=== PATIENT | male | born 1945 | race Caucasian/White ===

== ENCOUNTER 2017-08-02 08:16 | Inpatient (IN) | payer OTHER ==
[2017-08-02 08:26] VITALS: BMI 25.0
--- NOTE | 2017-08-02 08:44 | PDOC ---
History of Present Illness - General Chief Complaint: Weakness Stated Complaint: LETHARGIC Time Seen by Provider: 08/02/17 08:43 - History of Present Illness Initial Comments: 72 year old male with PMH of BPH and prostate cancer (s/p radiation last in April, immunotherapy, and hormone last inj in May with good toleration) presenting with rectal bleeding since 4 AM. He had bloody diarrhea x3 then had one episode of "pure blood" from his rectum. He is also beginning to feel weak and lightheaded so he came in for evaluation.He also admits to some mild nausea. He denies fevers, chills, vomiting, chest pain, palpitations, syncope, cough, or other sick symptoms. His oncologist is Dr. Cerda. 08/02/17 09:44 08/02/17 19:40 Past History - Past Medical History Allergies/Adverse Reactions: Allergies Allergy/AdvReac Type Severity Reaction Status Date / Time No Known Allergies Allergy Verified 08/02/17 09:42 Home Medications: Ambulatory Orders NK [No Known Home Medication] 08/02/17 Anemia: No Asthma: No Cancer: No Cardiac Disorders: No CVA: No COPD: No CHF: No Dementia: No Diabetes: No GI Disorders: No Disorders: Yes (kidney stones) HTN: No Hypercholesterolemia: No Liver Disease: No Seizures: No Thyroid Disease: No - Surgical History Abdominal Surgery: No Appendectomy: No Cardiac Surgery: No Cholecystectomy: No Lung Surgery: No Neurologic Surgery: No Orthopedic Surgery: Yes (LEFT KNEE REPLACED; LEFT) - Immunization History Immunization Up to Date: Yes - Psycho/Social/Smoking Cessation Hx Suicidal Ideation: No Smoking History: Never smoked Have you smoked in the past 12 months: No Information on smoking cessation initiated: No Hx Alcohol Use: No Drug/Substance Use Hx: No Substance Use Type: None Hx Substance Use Treatment: No Review of Systems - Review of Systems Constitutional: No: Chills, Fever HEENTM: No: Blurred Vision, Double Vision Respiratory: No: Cough, Shortness of Breath, Wheezing *Physical Exam - Vital Signs Last Vital Signs Temp Pulse Resp BP Pulse Ox 97.8 F 80 14 144/89 98 08/02/17 08:21 08/02/17 08:21 08/02/17 08:21 08/02/17 08:21 08/02/17 08:21 - Physical Exam General Appearance: Yes: Nourished, Appropriately Dressed. No: Apparent Distress HEENT: positive: EOMI, HAYLEY, Normal Voice Neck: positive: Trachea midline, Normal Thyroid, Supple. negative: Tender, Rigid Respiratory/Chest: positive: Lungs Clear, Normal Breath Sounds. negative: Chest Tender, Respiratory Distress Cardiovascular: positive: Regular Rhythm, Regular Rate, S1, S2. negative: Edema , JVD, Murmur, Bradycardia, Tachycardia Gastrointestinal/Abdominal: positive: Normal Bowel Sounds, Flat, Soft. negative : Tender Male Genitalia: negative: normal prostate (Smaller prostate) Rectal Exam: positive: other (No hemorrhoids, fissures, or blood in rectal vault.) Musculoskeletal: positive: Normal Inspection Extremity: positive: Normal Capillary Refill, Normal Inspection, Normal Range of Motion Integumentary: positive: Normal Color, Dry, Warm Neurologic: positive: Fully Oriented, Alert, Normal Mood/Affect ED Treatment Course - LABORATORY CBC & Chemistry Diagram: 08/02/17 15:00 08/02/17 09:45 Medical Decision Making - Medical Decision Making 72 year old male with recent prostate cancer undergoing hormonal treatment presenting with lower GI bleed. Patient has history of diverticuli in the past which is most likely the source of bleeding although he could have some form of GI malignancy as well given his prostate malignancy. His HgB is 12.4 whish is down from 13.6 5 years ago. His VSS are stable but he is feeling nauseous and lightheaded, we will admit the patient for serial HgBs with possible scope in the AM with GI. 08/02/17 12:12 08/02/17 19:41 *DC/Admit/Observation/Transfer Diagnosis at time of Disposition: Lower GI bleed - Discharge Dispostion Admit: Yes - Referrals
[2017-08-02 10:01] LABS: BASOPHIL 0.7 % (0-2.0); EOSINOPHIL 4.6 % (0-4.5); MCH 32.8 pg (25.7-33.7); MCHC 34.2 g/dl (32.0-35.9); MEAN CELL VOLUME 96.1 fl (80-96); MEAN PLT VOLUME 8.3 fl (7.5-11.1); NEUTROPHILS 75.3 % (42.8-82.8); PLATELET COUNT 168 K/MM3 (134-434); RDW 12.5 % (11.9-15.9); WHITE BLOOD COUNT 4.7 K/mm3 (4.0-10.0)
--- NOTE | 2017-08-02 10:04 | PDOC ---
Attending Attestation - Physicial Exam PE: 08/02/17 10:28 GENERAL: Awake, alert, and fully oriented, in no acute distress HEAD: No signs of trauma EYES: PERRLA, EOMI, sclera anicteric, conjunctiva clear ENT: Auricles normal inspection, hearing grossly normal, nares patent, oropharynx clear without exudates. Moist mucosa NECK: Normal ROM, supple, no lymphadenopathy, JVD, or masses LUNGS: Breath sounds equal, clear to auscultation bilaterally. No wheezes, and no crackles HEART: Regular rate and rhythm, normal S1 and S2, no murmurs, rubs or gallops ABDOMEN: Soft, nontender, normoactive bowel sounds. No guarding, no rebound. No masses. No CVA tenderness. EXTREMITIES: Normal range of motion, no edema. No clubbing or cyanosis. No cords, erythema, or tenderness NEUROLOGICAL: Cranial nerves II through XII grossly intact. Normal speech, normal gait SKIN: Warm, Dry, normal turgor, no rashes or lesions noted. Documentation prepared by Kiki Beal, acting as medical lab technologist for Huma Hawley DO. <Kiki Beal - Last Filed: 08/02/17 10:27> - Resident Resident Name: Lisha Loyola - ED Attending Attestation I have performed the following: I have examined & evaluated the patient, The case was reviewed & discussed with the resident, I agree w/resident's findings & plan, Exceptions are as noted - HPI HPI: 08/02/17 11:27 72yo male with 5 episodes of BRBPR, hx of diverticulosis on colonoscopy 1 year prior, currnelty being treated for prostate ca. Pt with weakness and lightheadedness - Medical Decision Making 08/02/17 10:04 I, Dr. Huma Hawley DO, attest that this document has been prepared under my direction and personally reviewed by me in its entirety. I further attest, that it accurately reflects all work, treatment, procedures and medical decision -making performed by me. 08/02/17 11:27 a/p: 72yo male with LGIB -labs -h/h, coags -pt on baby asa and currently using NSAIDS -no vomiting or blood. -hx of diverticulosis - concern for diverticular bleeding -will monitor 08/02/17 11:28 re-eval: h/h stable. however, weakness and lightheaded. will need monitoring for repeat h/h for LGIB. vault negative for stool or blood on resident exam. 08/02/17 12:[address] Esquivel who accepts pt to service. <Huma Hawley - Last Filed: 08/02/17 12:03>
[2017-08-02 10:24] LABS: INR 1.07 (0.82-1.09); PROTHROMBIN TIME (PATIENT) 11.8 SEC (9.98-11.88)
[2017-08-02 10:25] LABS: ALBUMIN 3.2 g/dl (3.4-5.0); ANION GAP 6 (8-16); BILIRUBIN,TOTAL 0.4 mg/dL (0.2-1.0); CALCIUM 9.2 mg/dL (8.5-10.1); CO2 27 mmol/L (21-32); CREATININE 1.1 mg/dL (0.7-1.3); GLUCOSE,RANDOM 162 mg/dL (74-106); MAGNESIUM 2.2 mg/dL (1.8-2.4); SGOT/AST 18 U/L (15-37); SGPT/ALT 28 U/L (12-78); TOT PROT 6.1 g/dl (6.4-8.2)
[2017-08-02 10:26] LABS: ALK PHOS 89 U/L (45-117)
[2017-08-02] MEDS ORDERED: SODIUM CHLORIDE 0.9% 1000 ML INFUS.BAG IV ONE (11:05)
--- NOTE | 2017-08-02 14:33 | CON.GI ---
Consult Consult Specialty:: Gastroenterology Reason for Consultation:: Lower GI Bleed - History of Present Illness Chief Complaint: Bright red blood per rectum History of Present Illness: 72 year old male presented to the hospital today with a 1 day hx of rectal bleeding. He states that he awoke last night around 4am, moved his bowels, and found that he had an episode of bloody diarrhea. He reports that he has had 5 episodes of bleeding since the initial one, the latest bowel movement, which was normal and without blood, being not much longer than 1 hour after the first. He states that he had never had this happen to him before. He states that he felt some weakness and lightheadedness in the morning, which prompted him to come to the ED. Patient denies chest pain, SOB, abdominal pain, nausea, vomiting, fever, chills, hematuria. Has not had a bowel movement this AM yet. 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 Family History: prostate CA in father, no medical conditions in mother Last Colonoscopy: 1 year ago; diverticula, does not remember name of portal administrator - History Source History Provided By: Patient Limitations to Obtaining History: No Limitations - Past Medical History Gastrointestinal: Yes: Hemorrhoids, Other (Diverticula) Renal/: Yes: BPH, Cancer (Protate CA) Heme/Onc: Yes: Cancer (Prostate CA) - Past Surgical History Past Surgical History: Yes: Joint Replacement (L Knee 2006, b/l shoulder surgery in ), TURP (2006) - Alcohol/Substance Use Hx Alcohol Use: No - Smoking History Smoking history: Never smoked Have you smoked in the past 12 months: No Home Medications - Allergies Allergies/Adverse Reactions: Allergies Allergy/AdvReac Type Severity Reaction Status Date / Time No Known Allergies Allergy Verified 08/02/17 09:42 - Home Medications Home Medications: Ambulatory Orders NK [No Known Home Medication] 08/02/17 Review of Systems - Review of Systems Constitutional: reports: No Symptoms Eyes: reports: No Symptoms HENT: reports: No Symptoms Neck: reports: No Symptoms Cardiovascular: reports: No Symptoms Respiratory: reports: No Symptoms Gastrointestinal: reports: No Symptoms Genitourinary: reports: No Symptoms Musculoskeletal: reports: No Symptoms Integumentary: reports: No Symptoms Neurological: reports: No Symptoms Endocrine: reports: No Symptoms Hematology/Lymphatic: reports: No Symptoms Psychiatric: reports: No Symptoms Physical Exam-GI Vital Signs: Vital Signs Temperature 97.8 F 08/02/17 08:21 Pulse Rate 80 08/02/17 08:21 Respiratory Rate 14 08/02/17 08:21 Blood Pressure 144/89 08/02/17 08:21 O2 Sat by Pulse Oximetry (%) 98 08/02/17 08:21 Constitutional: Yes: No Distress, Calm Eyes: Yes: Conjunctiva Clear, EOM Intact HENT: Yes: Atraumatic, Normocephalic Neck: Yes: Supple, Trachea Midline Cardiovascular: Yes: Regular Rate and Rhythm, S1, S2 Respiratory: Yes: Regular, CTA Bilaterally Gastrointestinal Inspection: Yes: WNL ...Auscultate: Yes: Normoactive Bowel Sounds ...Palpate: Yes: Soft. No: Tenderness ...Rectal Exam: Yes: WNL, Guaiac Positive, Sphincter Tone Normal Genitourinary: Yes: WNL Musculoskeletal: Yes: WNL Extremities: Yes: WNL Edema: No Peripheral Pulses WNL: Yes Integumentary: Yes: Tattoos (1 Tattoo on R arm and 1 on L shoudler) Neurological: Yes: Alert, Oriented, Cran Nerves II-XII Intact ...Motor Strength: WNL Psychiatric: Yes: Alert, Oriented Labs: INR, PTT INR 1.07 (0.82-1.09) 08/02/17 09:30 Laboratory Tests 08/02/17 08/02/17 08/02/17 09:30 09:45 14:10 WBC 4.7 Hgb 12.4 Hct 36.4 Plt Count 168 D Monocytes % 11.3 H Eosinophils % 4.6 H D Sodium 138 Potassium 4.8 Chloride 105 Carbon Dioxide 27 AST 18 ALT 28 Total Protein 6.1 L Albumin 3.2 L Stool Occult Blood Positive Problem List - Problems (1) Lower GI bleed Code(s): K92.2 - GASTROINTESTINAL HEMORRHAGE, UNSPECIFIED Assessment/Plan 72 year old male pmh prostate CA s/p radiation tx, BPH, diverticula, hemorrhoids is evaluated by gastroenterology for acute lower GI bleed. #Lower GI Bleed: acute bleed appears to be resolving. Initial cause of the painless hematochezia likely due to bleeding diverticula vs hemorrhoidal bleed vs malignancy. Less likely a picture of radiation-induced colitis or upper GI bleed (but still necessary to rule-out). -Patient is hemodynamically stable, continue to monitor BP and Hgb -Hold home ibuprofen and ASA -fluid rescusitation and transfuse PRBcs if < 7 -recommend upper endoscopy and colonoscopy to assess cause of bleed and r/o malignancy
[2017-08-02 15:18] LABS: MCH 32.9 pg (25.7-33.7); MCHC 34.3 g/dl (32.0-35.9); MEAN CELL VOLUME 95.9 fl (80-96); MEAN PLT VOLUME 8.1 fl (7.5-11.1); PLATELET COUNT 168 K/MM3 (134-434); RDW 12.5 % (11.9-15.9); WHITE BLOOD COUNT 4.3 K/mm3 (4.0-10.0)
[2017-08-02] MEDS ORDERED: BISACODYL 5 MG TABLET.DR (FP) PO ONE (16:00)
--- NOTE | 2017-08-02 16:34 | PN ---
Teaching Attending Note Name of Resident: Michele Soares ATTENDING PHYSICIAN STATEMENT I saw and evaluated the patient. I reviewed the resident's note and discussed the case with the resident. I agree with the resident's findings and plan as documented. SUBJECTIVE: 72M with episodic red/dark red painless rectal bleeding yesterday and this morning. Lightheadedness during the initial event Otherwise no focal complaints Takes 2 advils in evening 4-5 times per week and ASA 81mg once daily Had a colonoscopy a little over a year ago with Dr. Ma: described a fair prep with 2 year follow-up exam recommended OBJECTIVE: Afebrile / 66 / 131/93 Anicteric Hrt RRR Lungs CTA B/L Abd: No scars, +BS, sft, NT/ND No HSM ASSESSMENT / PLAN: Painless rectal bleeding described as both dark and bright red blood He has remained hemodynamically stable without significant change in H/H. Suspect lower GI source of blood loss such as bleeding diverticula, hemorrhoids , radiation proctitis. Given NSAID use and description of dark red bleeding as well we discussed not only colonoscopy with Mr. York and his but endoscopy as well. We discussed potential risks of the procedures like but not limited to bleeding, perforation requiring surgery to repair, infection and sedation effects all of which could be potentially life threatening. he has agreed to the procedures. NPO after midnight except meds Clear liquids before then Monitored setting
[2017-08-02] MEDS ORDERED: PEG3350/SOD SULF,BICARB,CL/KCL 4,000 ML SOLN.RECON PO ONE (17:00)
--- NOTE | 2017-08-02 20:55 | HP ---
Admitting History and Physical - Admission History of Present Illness: Pt is a 72 y/o male w/ PMH significant for prostate cancer(s/p RT wc ended in and hormonal therapy) who woke up around 2 am and then again at 4 am due to rectal bleeding. Pt had noticed bright red blood and dark blood clots per rectum. Pt denied any abdominal pain and states that it was mostly blood and no stool. Pt waited till around 9am and then called his urologist and came to the ER. Pt was having lightheadedness also. Pt had colonscopy about 14 months prior and said he was dx'ed w/ diverticular dz. - Past Medical History Gastrointestinal: Yes: Hemorrhoids, Other (Diverticula) Renal/: Yes: BPH, Cancer (Protate CA) Heme/Onc: Yes: Cancer (Prostate CA) - Past Surgical History Past Surgical History: Yes: Joint Replacement (L Knee 2006, b/l shoulder surgery in ), TURP (2006) - Smoking History Smoking history: Never smoked Have you smoked in the past 12 months: No - Alcohol/Substance Use Hx Alcohol Use: No Home Medications - Allergies Allergies/Adverse Reactions: Allergies Allergy/AdvReac Type Severity Reaction Status Date / Time No Known Allergies Allergy Verified 08/02/17 09:42 - Home Medications Home Medications: Ambulatory Orders NK [No Known Home Medication] 08/02/17 Family Disease History - Family Disease History Family History: Unremarkable Review of Systems - Review of Systems Constitutional: reports: Other (Lightheadedness) Neck: reports: No Symptoms Cardiovascular: reports: No Symptoms Respiratory: reports: No Symptoms Gastrointestinal: reports: Rectal Bleeding Physical Examination Vital Signs: Vital Signs Temperature 98.1 F 08/02/17 19:15 Pulse Rate 72 08/02/17 19:15 Respiratory Rate 18 08/02/17 19:23 Blood Pressure 144/72 08/02/17 19:15 O2 Sat by Pulse Oximetry (%) 97 08/02/17 19:23 Constitutional: Yes: No Distress Eyes: Yes: WNL HENT: Yes: WNL Neck: Yes: WNL, Supple Cardiovascular: Yes: WNL, Regular Rate and Rhythm Respiratory: Yes: WNL, Regular, CTA Bilaterally Gastrointestinal: Yes: WNL, Normal Bowel Sounds, Soft Extremities: Yes: WNL Edema: No Neurological: Yes: WNL, Alert, Oriented ...Motor Strength: WNL Labs: CBC, BMP 08/02/17 15:00 Problem List - Problems (1) Lower GI bleed Assessment/Plan: Pt seen by GI Pt scheduled for colonscopy and possible EGD Bowel prep Follow H/H Pt is hemodynamically stable NPO Cont IVF Code(s): K92.2 - GASTROINTESTINAL HEMORRHAGE, UNSPECIFIED (2) Symptomatic anemia Assessment/Plan: Monitor H/H Code(s): D64.9 - ANEMIA, UNSPECIFIED (3) Prostate cancer Code(s): C61 - MALIGNANT NEOPLASM OF PROSTATE
[2017-08-02 21:25] LABS: BASOPHIL 0.7 % (0-2.0); EOSINOPHIL 4.7 % (0-4.5); MCH 33.2 pg (25.7-33.7); MCHC 34.6 g/dl (32.0-35.9); MEAN CELL VOLUME 95.9 fl (80-96); MEAN PLT VOLUME 8.1 fl (7.5-11.1); NEUTROPHILS 68.6 % (42.8-82.8); PLATELET COUNT 204 K/MM3 (134-434); WHITE BLOOD COUNT 5.4 K/mm3 (4.0-10.0)
[2017-08-03] MEDS ORDERED: DEXTROSE 5%-0.45% SALINE 1,000 ML IV SCH (01:45)
[2017-08-03 08:12] LABS: BASOPHIL 0.6 % (0-2.0); EOSINOPHIL 4.9 % (0-4.5); MCH 32.5 pg (25.7-33.7); MCHC 34.3 g/dl (32.0-35.9); MEAN CELL VOLUME 94.9 fl (80-96); MEAN PLT VOLUME 8.4 fl (7.5-11.1); NEUTROPHILS 70.9 % (42.8-82.8); PLATELET COUNT 148 K/MM3 (134-434); RDW 12.4 % (11.9-15.9); WHITE BLOOD COUNT 3.9 K/mm3 (4.0-10.0)
[2017-08-03 08:41] LABS: ALBUMIN 2.9 g/dl (3.4-5.0); ANION GAP 6 (8-16); CALCIUM 8.7 mg/dL (8.5-10.1); CO2 30 mmol/L (21-32); SGOT/AST 18 U/L (15-37); SGPT/ALT 27 U/L (12-78)
[2017-08-03 08:44] LABS: ALK PHOS 71 U/L (45-117); BILIRUBIN,TOTAL 0.3 mg/dL (0.2-1.0); GLUCOSE,RANDOM 122 mg/dL (74-106); TOT PROT 5.4 g/dl (6.4-8.2)
--- NOTE | 2017-08-03 09:16 | PN ---
Progress Note, Physician History of Present Illness: Patient seen and examined at bedside. Denies any overnight events. Patient has been prepped with golytely and is NPO for endoscopy today around 12-1pm. Denies chest pain, SOB, headache, abdominal pain, nausea, vomiting, weakness, hematochezia. - Current Medication List Current Medications: Active Medications Dextrose/Sodium Chloride (D5-1/2ns -) 1,000 mls @ 75 mls/hr IV ASDIR VÍCTOR - Objective Vital Signs: Vital Signs Temperature 98.1 F 08/03/17 06:00 Pulse Rate 68 08/03/17 06:00 Respiratory Rate 20 08/03/17 06:00 Blood Pressure 119/54 08/03/17 06:00 O2 Sat by Pulse Oximetry (%) 96 08/02/17 21:00 Constitutional: Yes: No Distress, Calm Eyes: Yes: Conjunctiva Clear, EOM Intact HENT: Yes: Atraumatic, Normocephalic Neck: Yes: Supple, Trachea Midline Cardiovascular: Yes: Regular Rate and Rhythm, S1, S2 Respiratory: Yes: Regular, CTA Bilaterally Gastrointestinal: Yes: Normal Bowel Sounds, Soft Musculoskeletal: Yes: WNL Extremities: Yes: WNL Edema: No Peripheral Pulses WNL: Yes Integumentary: Yes: Tattoos (R arm and L shoulder), Other (old surgical scars on L knee, shoulders, R elbow) Neurological: Yes: Alert, Oriented ...Motor Strength: WNL Psychiatric: Yes: Alert, Oriented Labs: CBC, BMP 08/03/17 06:00 08/03/17 06:00 INR, PTT INR 1.07 (0.82-1.09) 08/02/17 09:30 Laboratory Tests 08/02/17 08/03/17 08/03/17 14:10 06:00 06:00 WBC 3.9 L Hgb 10.6 L D Hct 30.9 L Plt Count 148 D BUN 21 H D Creatinine 1.0 Stool Occult Blood Positive Problem List - Problems (1) Lower GI bleed Code(s): K92.2 - GASTROINTESTINAL HEMORRHAGE, UNSPECIFIED Assessment/Plan 72 year old male with acute gastrointestinal hemorrhage in stable condition. Prepped for colonoscopy and possible EGD today at 12-1pm with Dr. Ma.
--- NOTE | 2017-08-03 09:48 | EKG ---
Test Reason : Blood Pressure : / mmHG Vent. Rate : 061 BPM Atrial Rate : 061 BPM P-R Int : 170 ms QRS Dur : 072 ms QT Int : 432 ms P-R-T Axes : 027 -23 007 degrees QTc Int : 434 ms NORMAL SINUS RHYTHM WITH SINUS ARRHYTHMIA MINIMAL VOLTAGE CRITERIA FOR LVH, MAY BE NORMAL VARIANT NONSPECIFIC ST ABNORMALITY ABNORMAL ECG Confirmed by CT GALVAN MD ([id number]) on 08/03/2017 9:48:12 AM Referred By: Confirmed By:CT GALVAN MD
[2017-08-03 15:05] VITALS: TEMP 97.5
--- NOTE | 2017-08-03 15:20 | PN ---
Progress Note (short form) - Note Progress Note: GI Procedures NOte: Please see EGD and colonoscopy reports. No active bleeding found. The most likely source is hemorrhoidal bleeding. I have advised Sitz baths and high fiber diet plus Miralax daily. Rubber band ligation of hemorrhoids has been discussed as an option if bleeding persists. I have no GI objections to discharge today.
[2017-08-03 15:57] VITALS: BP 151/79; PULSE 52
--- NOTE | 2017-08-03 17:31 | DS ---
Physical Examination Vital Signs: Vital Signs Temperature 97.5 F L 08/03/17 15:14 Pulse Rate 52 L 08/03/17 15:56 Respiratory Rate 20 08/03/17 15:56 Blood Pressure 151/79 08/03/17 15:56 O2 Sat by Pulse Oximetry (%) 100 08/03/17 15:14 Constitutional: Yes: No Distress Neck: Yes: WNL, Supple Cardiovascular: Yes: WNL, Regular Rate and Rhythm Respiratory: Yes: WNL, Regular, CTA Bilaterally Gastrointestinal: Yes: WNL, Normal Bowel Sounds, Soft Musculoskeletal: Yes: WNL Extremities: Yes: WNL Edema: No Labs: CBC, BMP 08/03/17 06:00 08/03/17 06:00 Discharge Summary Reason For Visit: LIGHTHEADNESS,LOWER GI BLEED Current Active Problems Lower GI bleed (Acute) Prostate cancer (Acute) Symptomatic anemia (Acute) Hospital Course: Pt is a 72 y/o male Condition: Good - Instructions Diet, Activity, Other Instructions: See Dr Esquivel in 1 week [phone] If any bleeding go directly to nearest emergency room Regular diet Referrals: STAFF,NOT ON [Primary Care Provider] - Amanda Esquivel MD [Staff Physician] - Disposition: HOME - Home Medications Comprehensive Discharge Medication List: Ambulatory Orders NK [No Known Home Medication] 08/02/17
[2017-08-04] MEDS ORDERED: POLYETHYLENE GLYCOL 3350 119 GM BTL PO SCH (10:00)
--- NOTE | 2017-08-07 13:10 | PATH ---
Surgical Pathology Report Patient Name: JOMAR NEW [facility]. Rec. #: [id number] /Age/Gender: 1945 (Age: 72) / M Account: [id number] Location: 4 W TELEMETRY U Taken: 08/03/2017 Received: 08/06/2017 Reported: 08/07/2017 Physicians: Yolande Ma M.D. Specimen(s) Received A: BX ANTRUM B: BX ESOPHAGUS Clinical History GI bleed Mild antral gastritis, diverticulosis, hemorrhoids Final Diagnosis A. STOMACH, ANTRUM, BIOPSY: GASTRIC ANTRAL MUCOSA WITH MILD TO MODERATE CHRONIC GASTRITIS AND MILD REACTIVE GASTROPATHY. IMMUNOSTAIN FOR H. PYLORI IS NEGATIVE FOR ORGANISMS. B. ESOPHAGUS, DISTAL, BIOPSY: SQUAMOUS EPITHELIUM WITH CHRONIC INFLAMMATION AND REFLUX TYPE CHANGES. NO COLUMNAR EPITHELIUM PRESENT (NO INTESTINAL METAPLASIA/CHRISTIANSEN'S ESOPHAGUS IDENTIFIED). Electronically Signed Sathya Ragland M.D. Gross Description A. Received in formalin, labeled "biopsy antrum" are 2 mcclain, irregular portions of soft tissue measuring 0.2 and 0.4 cm in greatest dimension. The specimens are submitted in toto in one cassette. B. Received in formalin, labeled "biopsy distal esophagus" are 2 mcclain, irregular portions of soft tissue measuring 0.2 and 0.3 cm in greatest dimension. The specimens are submitted in toto in one cassette. 08/06/201708/06/2017
== END 2017-08-03 18:53 | disposition home or self-care (01) | DRG 394 ==
LOC: JER 08:16 → JERBED 12:02 → J4W 17:45
PROVIDERS: ADMIT Internal Medicine; ATTEND Internal Medicine
PROC: 0DB58ZX Excision of Esophagus, Via Natural or Artificial Opening Endoscopic, Diagnostic (ICD-10-PCS; 2017-08-03)
PROC: 0DB68ZX Excision of Stomach, Via Natural or Artificial Opening Endoscopic, Diagnostic (ICD-10-PCS; 2017-08-03)
PROC: 0DJD8ZZ Inspection of Lower Intestinal Tract, Via Natural or Artificial Opening Endoscopic (ICD-10-PCS; principal; 2017-08-03 13:00)
DX: K64.4 Residual hemorrhoidal skin tags (principal); D62 Acute posthemorrhagic anemia; N40.0 Benign prostatic hyperplasia without lower urinary tract symptoms; C61 Malignant neoplasm of prostate; K64.8 Other hemorrhoids; K57.90 Diverticulosis of intestine, part unspecified, without perforation or abscess without bleeding; D64.9 Anemia, unspecified; K44.9 Diaphragmatic hernia without obstruction or gangrene; K29.60 Other gastritis without bleeding; Z96.651 Presence of right artificial knee joint; Z86.718 Personal history of other venous thrombosis and embolism
CPT/HCPCS: 36415; 80053; 82272; 83735; 85025; 85027; 85610; 86850; 86900; 86901; 88305-TC; 93005; 93010; 99284-25

== ENCOUNTER 2017-10-28 08:43 | Emergency (ER) | payer OTHER ==
--- NOTE | 2017-10-28 08:50 | PDOC ---
History of Present Illness - General Chief Complaint: Nasal Bleeding Stated Complaint: NOSE BLEED Time Seen by Provider: 10/28/17 08:50 History Source: Patient Exam Limitations: No Limitations - History of Present Illness Initial Comments: 10/28/17 09:28 Pt presents to the ED complaining of a 45 minute history of epistaxis. Patient states that he blew his nose vigorously, then experienced bleeding from his nose that did not resolve at home with pressure. Denies lightheadness or passing out. Takes 81 mg of asprin qd, but denies other blood thinners. Bleeding resolved with 20 min firm pressure in the ED. States that initially, he could feel blood running down the back of his throat, but that this has now resolved. 10/28/17 09:31 Past History - Past Medical History Allergies/Adverse Reactions: Allergies Allergy/AdvReac Type Severity Reaction Status Date / Time No Known Allergies Allergy Verified 10/28/17 09:02 Home Medications: Ambulatory Orders Androgen Deprivation Therapy 10/28/17 Aspirin [Aspirin EC] 81 mg PO DAILY 10/28/17 Anemia: No Cancer: (prostate ca Tx with rad and hormone immuno therapy) Disorders: Yes (kidney stones) - Surgical History Orthopedic Surgery: Yes (LEFT KNEE REPLACED; LEFT) - Immunization History Immunization Up to Date: Yes - Suicide/Smoking/Psychosocial Hx Smoking History: Never smoked Have you smoked in the past 12 months: No Hx Alcohol Use: No Drug/Substance Use Hx: No Substance Use Type: None Hx Substance Use Treatment: No Review of Systems - Review of Systems Constitutional: No: Symptoms Reported, See HPI, Chills, Diaphoresis, Fever, Loss of Appetite, Malaise, Night Sweats, Weakness, Weight Stable, Unintentional Wgt. Loss, Unexplained wgt Loss, Other HEENTM: Yes: Nose Bleeding. No: Symptoms Reported, See HPI, Eye Pain, Blurred Vision, Tearing, Recent change in vision, Double Vision, Cataracts, Ear Pain, Ocular Prothesis, Ear Discharge, Nose Pain, Nose Congestion, Tinnitus, Hearing Loss, Throat Pain, Throat Swelling, Mouth Pain, Dental Problems, Difficulty Swallowing, Mouth Swelling, Other Respiratory: No: Symptoms reported, See HPI, Cough, Orthopnea, Shortness of Breath, SOB with Exertion, SOB at Rest, Stridor, Wheezing, Productive cough, Hemoptysis, Other Cardiac (ROS): No: Symptoms Reported, See HPI, Chest Pain, Edema, Irregular Heart Rate, Lightheadedness, Palpitations, Syncope, Chest Tightness, Other ABD/GI: No: Symptoms Reported, See HPI, Abdominal Distended, Abd. Pain w/ defecation, Blood Streaked Bowels, Constipated, Diarrhea, Difficulty Swallowing , Nausea, Poor Appetite, Poor Fluid Intake, Rectal Bleeding, Vomiting, Indigestion, Abdominal cramping, Tarry Stools, Other Medical Decision Making - Medical Decision Making 10/28/17 10:04 Bleeding resolved in the ED after 20 min pressure. Patient observed in the ED for one hour, and bleeding is still resolved. Will discharge home with instructions to return to the ED for further episodes of bleeding. *DC/Admit/Observation/Transfer Diagnosis at time of Disposition: Epistaxis - Discharge Dispostion Disposition: HOME Condition at time of disposition: Good Admit: No - Referrals - Patient Instructions Printed Discharge Instructions: DI for Nosebleed Additional Instructions: if you have another episode of bleeding at home, hold pressure for 20 minutes. If the bleeding continues after 20 minutes of continuous pressure, return to the ED. REturn to the ED for lightheadness, chest pain or shortness of breath, other new or worsening symptoms. - Post Discharge Activity
[2017-10-28 09:08] VITALS: BP 133/90; PULSE 77; TEMP 98; BMI 26.0
== END 2017-10-28 10:22 | disposition home or self-care (01) ==
LOC: FER 08:43
DX: R04.0 Epistaxis (principal); Z85.46 Personal history of malignant neoplasm of prostate
CPT/HCPCS: 99283-25